=== PATIENT | male | born 1965 | race Caucasian/White ===

== ENCOUNTER 2016-12-19 14:09 | Emergency (ER) | payer BC ==
--- NOTE | 2016-12-19 15:48 | DIAGNOSTIC IMAGING REPORT ---
PROCEDURE: XR CHEST 2 VIEW INDICATION: CHEST PAIN TECHNIQUE: PA and lateral views. COMPARISON: None. FINDINGS: Lungs are clear. Heart and mediastinum are normal. Thorax is normal. IMPRESSION: 1. Negative chest.
--- NOTE | 2016-12-19 17:52 | ED ORDER SUMMARY ---
..... Patient: ROBERTO FAGAN OrderSheet [facility] VisitID: [id number] [address] [place] [address] 51y, M Registration Date/Time: 12/19/2016 ORDER SHEET Weight: 102.0 kg Allergies: No Known Drug Allergy GENERAL ORDERS: Chest 2V Urgent (14:12/19/2016 PHutchinson DO) (Ack 14:30 LTapper) (17:06 KWilliams R.N.) Electrical Logger (Continuous) (14:12/19/2016 PHutchinson DO) (14:27 EBonham) UA-Culture if indicated Urgent (14:12/19/2016 PHutchinson DO) (14:28 EBonham) Cardiac Panel Stat (14:12/19/2016 PHutchinson DO) (14:28 EBonham) BNP Urgent (14:12/19/2016 PHutchinson DO) (14:28 EBonham) Amylase Urgent (14:12/19/2016 PHutchinson DO) (14:28 EBonham) Lipase Urgent (14:12/19/2016 PHutchinson DO) (Ack 14:30 LTapper) (16:14 EBonham) Urine Drug Screen Urgent (14:12/19/2016 PHutchinson DO) (14:28 EBonham) TSH Urgent (14:12/19/2016 PHutchinson DO) (14:28 EBonham) Ethyl Alcohol Urgent (14:12/19/2016 PHutchinson DO) (14:28 EBonham) Oxygen (2 L/min) (NC) (14:12/19/2016 PHutchinson DO) (14:28 EBonham) Pulse oximeter (14:12/19/2016 PHutchinson DO) (14:29 EBonham) EKG - ER Stat (14:12/19/2016 PHutchinson DO) (Ack 14:30 LTapper) Vitals (14:12/19/2016 PHutchinson DO) (14:28 EBonham) MEDICATION ORDERS: IV FLUIDS: IV NS : initial bolus 1000 mL (1000 mL/hr), then 250 mL/hr for X4 (NOW) (14:27 12/19/2016 Reji FISCHER) (14:29 Luis) ORDER SHEET NOTES: [Electronically signed by Teresa Yanes (18:12 12/19/2016)] [Electronically signed by Warner Ceballos DO (07:35 12/20/2016)] [Electronically locked/signed by Teresa Yanes (18:12 12/19/2016)]
--- NOTE | 2016-12-19 17:52 | ED ORDER SUMMARY ---
..... Patient: ROBERTO FAGAN OrderSheet [facility] VisitID: [id number] [address] [place] [address] 51y, M Registration Date/Time: 12/19/2016 ORDER SHEET Weight: 102.0 kg Allergies: No Known Drug Allergy GENERAL ORDERS: Chest 2V Urgent (14:12/19/2016 PHutchinson DO) (Ack 14:30 LTapper) (17:06 KWilliams R.N.) Records Management Specialist (Continuous) (14:12/19/2016 PHutchinson DO) (14:27 EBonham) UA-Culture if indicated Urgent (14:12/19/2016 PHutchinson DO) (14:28 EBonham) Cardiac Panel Stat (14:12/19/2016 PHutchinson DO) (14:28 EBonham) BNP Urgent (14:12/19/2016 PHutchinson DO) (14:28 EBonham) Amylase Urgent (14:12/19/2016 PHutchinson DO) (14:28 EBonham) Lipase Urgent (14:12/19/2016 PHutchinson DO) (Ack 14:30 LTapper) (16:14 EBonham) Urine Drug Screen Urgent (14:12/19/2016 PHutchinson DO) (14:28 EBonham) TSH Urgent (14:12/19/2016 PHutchinson DO) (14:28 EBonham) Ethyl Alcohol Urgent (14:12/19/2016 PHutchinson DO) (14:28 EBonham) Oxygen (2 L/min) (NC) (14:12/19/2016 PHutchinson DO) (14:28 EBonham) Pulse oximeter (14:12/19/2016 PHutchinson DO) (14:29 EBonham) EKG - ER Stat (14:12/19/2016 PHutchinson DO) (Ack 14:30 LTapper) Vitals (14:12/19/2016 PHutchinson DO) (14:28 EBonham) MEDICATION ORDERS: IV FLUIDS: IV NS : initial bolus 1000 mL (1000 mL/hr), then 250 mL/hr for X4 (NOW) (14:27 12/19/2016 Reji FISCHER) (14:29 Luis) ORDER SHEET NOTES: [Electronically signed by Teresa Yanes (18:12 12/19/2016)] [Electronically signed by Warner Ceballos DO (07:35 12/20/2016)] [Electronically locked/signed by Teresa Yanes (18:12 12/19/2016)]
--- NOTE | 2016-12-19 17:52 | ED NURSING NOTES ---
Clinical Report - Nurses [facility] [address] [place] [address] 12/19/2016 14:12 Patient: ROBERTO FAGAN TRIAGE Triage time 1415. Acuity: LEVEL 3. Chief Complaint: ABDOMINAL PAIN. Alert. No acute distress. --14:26 Teresa Yanes 14:22 12/19/16. BP: 186/110. HR: 86. RR: 18. O2 saturation: 98%. Temp: 98.3 F. Pain level now 04/15. --14: Teresa Yanes. Weight: 102 kg. Height/Length: 70.5 inches. BMI: 31.8. --14:21 Teresa Yanes. Medications FLUoxetine HCl Oral. --14:23 Teresa Yanes Lisinopril Oral. --14:23 Teresa Yanes. Allergies No Known Drug Allergy. --18:12 Teresa Yanes. History Arrived by private vehicle. Historian: patient. Onset. (5 hours ago). ( Pt with sudden sharp LLQ pain that radiates up to chest, sudden onset, pain doesn't last long, denies any other sxs, hx htn, lisnopril rx ). Treatment CHEMISTRY INTERN: None. SOCIAL HX: Former smoker, end date 2002. Heavy alcohol use; consumes a large amount of liquor daily. Last drink was less than 24 hours ago. --14:26 Teresa Yanes. PROBLEMS: Hypertension. --14:23 Teresa Yanes. ADDITIONAL SURGERIES: Appendectomy. --14:23 Teresa Yanes. Interventions ID band on patient. To treatment room. --14: Teresa Yanes. PHYSICAL ASSESSMENT Ambulatory to room. GENERAL / NEURO / PSYCH: Alert. Oriented X 4. Appears anxious. HEENT: Mucous membranes are pink. RESPIRATORY: Respirations not labored. Breath sounds within normal limits. CVS: Normal sinus rhythm noted. Capillary refill less than 2 seconds. GI / : Abdomen soft and nontender. Bowel sounds within normal limits. SKIN: Skin is warm and dry. --14:26 Teresa Yanes. NURSING PROGRESS NOTES The plan of care for this patient has been created. Reassurance given. Call light placed in reach. Side rails up x 1. Bed placed in lowest position. Brakes of bed on. Patient ready for evaluation- chart flagged and ED physician notified. --14: Teresa Yanes 14:12/19/2016 Site #1 started via IV in the right antecubital space with an 20g angiocath; one attempt. Blood drawn: rainbow set. Labeled in the presence of the patient. Saline lock flushed with 10 mL saline. --14: Teresa Yanes 14:12/19/2016 Started bag #1 1000 mL IV Fluids IV NS (Saline); bolus of 1000 mL wide open via site #1 --14: Teresa Yanes 15:37 12/19/16. BP: 157/90. HR: 76. RR: 16. O2 saturation: 100%. Pain level now 0/10. --15:38 Teresa Yanes Reassessment after fluids administered. He reports no complaints. Overall patient status is the same- he states feels the same. --15:38 Teresa Yanes 15:38 12/19/2016 IV Fluids IV NS Discontinued: bag #1 infused. Total amount infused: 1000 mL. --15:38 Teresa Yanes 18:11 12/19/2016 Site #1 removed upon discharge. Pressure dressing applied. --18:12 Teresa Yanes. DISPOSITION / DISCHARGE Condition at departure: improved and stable. Discharge instructions provided and reviewed with the patient. Reviewed medication(s). Patient verbalized understanding. Written instructions provided in [place]uran. The patient was discharged by the physician. He was discharged home. He left the Emergency Department ambulatory and via private vehicle. Patient driving. --18:11 Teresa Yanes 18:09 12/19/16. BP: 157/90. HR: 72. RR: 18. O2 saturation: 99%. Pain level now 0/10. --18:11 Teresa Yanes Departure time: 1808. --18:11 Teresa Yanes. Locked/Released at 12/19/2016 18:12 by Teresa Yanes,
--- NOTE | 2016-12-19 17:52 | ED NURSING NOTES ---
Clinical Report - Nurses [facility] [address] [place] [address] 12/19/2016 14:12 Patient: ROBERTO FAGAN TRIAGE Triage time 1415. Acuity: LEVEL 3. Chief Complaint: ABDOMINAL PAIN. Alert. No acute distress. --14:26 Teresa Yanes 14:22 12/19/16. BP: 186/110. HR: 86. RR: 18. O2 saturation: 98%. Temp: 98.3 F. Pain level now 04/15. --14: Teresa Yanes. Weight: 102 kg. Height/Length: 70.5 inches. BMI: 31.8. --14:21 Teresa Yanes. Medications FLUoxetine HCl Oral. --14:23 Teresa Yanes Lisinopril Oral. --14:23 Teresa Yanes. Allergies No Known Drug Allergy. --18:12 Teresa Yanes. History Arrived by private vehicle. Historian: patient. Onset. (5 hours ago). ( Pt with sudden sharp LLQ pain that radiates up to chest, sudden onset, pain doesn't last long, denies any other sxs, hx htn, lisnopril rx ). Treatment [facility] SECURITY: None. SOCIAL HX: Former smoker, end date 2002. Heavy alcohol use; consumes a large amount of liquor daily. Last drink was less than 24 hours ago. --14:26 Teresa Yanes. PROBLEMS: Hypertension. --14:23 Teresa Yanes. ADDITIONAL SURGERIES: Appendectomy. --14:23 Teresa Yanes. Interventions ID band on patient. To treatment room. --14: Teresa Yanes. PHYSICAL ASSESSMENT Ambulatory to room. GENERAL / NEURO / PSYCH: Alert. Oriented X 4. Appears anxious. HEENT: Mucous membranes are pink. RESPIRATORY: Respirations not labored. Breath sounds within normal limits. CVS: Normal sinus rhythm noted. Capillary refill less than 2 seconds. GI / : Abdomen soft and nontender. Bowel sounds within normal limits. SKIN: Skin is warm and dry. --14:26 Teresa Yanes. NURSING PROGRESS NOTES The plan of care for this patient has been created. Reassurance given. Call light placed in reach. Side rails up x 1. Bed placed in lowest position. Brakes of bed on. Patient ready for evaluation- chart flagged and ED physician notified. --14: Teresa Yanes 14:12/19/2016 Site #1 started via IV in the right antecubital space with an 20g angiocath; one attempt. Blood drawn: rainbow set. Labeled in the presence of the patient. Saline lock flushed with 10 mL saline. --14: Teresa Yanes 14:12/19/2016 Started bag #1 1000 mL IV Fluids IV NS (Saline); bolus of 1000 mL wide open via site #1 --14: Teresa Yanes 15:37 12/19/16. BP: 157/90. HR: 76. RR: 16. O2 saturation: 100%. Pain level now 0/10. --15:38 Teresa Yanes Reassessment after fluids administered. He reports no complaints. Overall patient status is the same- he states feels the same. --15:38 Teresa Yanes 15:38 12/19/2016 IV Fluids IV NS Discontinued: bag #1 infused. Total amount infused: 1000 mL. --15:38 Teresa Yanes 18:11 12/19/2016 Site #1 removed upon discharge. Pressure dressing applied. --18:12 Teresa Yanes. DISPOSITION / DISCHARGE Condition at departure: improved and stable. Discharge instructions provided and reviewed with the patient. Reviewed medication(s). Patient verbalized understanding. Written instructions provided in Israeli. The patient was discharged by the physician. He was discharged home. He left the Emergency Department ambulatory and via private vehicle. Patient driving. --18:11 Teresa Yanes 18:09 12/19/16. BP: 157/90. HR: 72. RR: 18. O2 saturation: 99%. Pain level now 0/10. --18:11 Teresa Yanes Departure time: 1808. --18:11 Teresa Yanes. Locked/Released at 12/19/2016 18:12 by Teresa Yanes,
--- NOTE | 2016-12-19 17:52 | ED CLINICAL REPORT ---
Clinical Report - Physicians/Mid Levels [facility] [address] [place] [address] 12/19/2016 14:12 Patient: ROBERTO FAGAN Time Seen: 14:22. Arrived- By private vehicle. Historian- patient. HISTORY OF PRESENT ILLNESS Chief Complaint: ABDOMINAL PAIN. At its maximum, severity described as moderate. When seen in the E.D., it was gone. Modifying factors. Not worsened by anything. Not relieved by anything. This started about 5 hours ago and is still present. It was gradual in onset and has been waxing/waning. It is described as "pain" and sharp and it is described as located in the left lower quadrant and radiating (left upper abdomen and left lower chest). No nausea, vomiting or diarrhea. Similar symptoms previously: None. Recent medical care: Not recently seen/assessed. REVIEW OF SYSTEMS No constipation, black stools, hematemesis, difficulty with urination or pain with urination. No urinary frequency, bloody stools, fever, sore throat or chest pain. No difficulty breathing, cough, skin rash or back pain. All systems otherwise negative, except as recorded above. PAST HISTORY See nurses notes. Hypertension. Anxiety. Depression. Surgeries: Appendectomy. Medications: Lisinopril Oral. FLUoxetine HCl Oral. SOCIAL HISTORY Smoker- current status unknown. Heavy alcohol use; consumes liquor daily. Last drink was less than 24 hours ago. ADDITIONAL NOTES The nursing notes have been reviewed. PHYSICAL EXAM Vital Signs: 12/19/2016 14:22 BP: 186/110. HR: 86. RR: 18. O2 saturation: 98%. Temp: 98.3 F. Appearance: Alert. Oriented X3. Anxious. Patient in mild distress. Eyes: Eyes normal inspection. No scleral icterus or pale conjunctivae. ENT: Pharynx normal. No pharyngeal erythema or tonsillar exudate. The mucous membranes are not dry. Neck: Normal inspection. Neck supple. CVS: Normal heart rate and rhythm. Heart sounds normal. Pulses normal. Respiratory: No respiratory distress. Breath sounds normal. Chest nontender. Abdomen: Soft and nontender. No mass. Back: Normal inspection. Skin: Skin warm and dry. Normal skin color. No rash. Normal skin turgor. Extremities: Extremities exhibit normal ROM. No lower extremity edema. No calf tenderness. No lower extremity edema. Neuro: Oriented X 3. No motor deficit. LABS, X-RAYS, AND EKG Rhythm Strip #1: Normal sinus rhythm. Regular rhythm. Narrow QRS complexes. No ectopy. Chest X-ray: No acute disease. Normal lung markings present. Normal heart size. Mediastinum normal. Great vessels normal. No infiltrate. Views: PA and lateral. Technique: good. The X-rays were interpreted contemporaneously by me. The X-rays were discussed with the radiologist (via PACS note). Laboratory Tests: UA-Culture if indicated: (ABEL: 12/19/2016 16:13) ( [facility] 12/19/2016 16:39) Final results Test Result Flag Units (Reference) URINE COLOR YELLOW URINE APPEARANCE CLEAR URINE GLUCOSE NEGATIVE (NEGATIVE) URINE BILIRUBIN NEGATIVE (NEGATIVE) URINE KETONE NEGATIVE (NEGATIVE) URINE SPECIFIC GRAVITY 1.025 (1.010-1.030) URINE PH 6.0 (5.0-8.0) URINE PROTEIN NEGATIVE (NEGATIVE) URINE UROBILINOGEN 0.2 EU/dL (0.2-1.0) URINE NITRITE NEGATIVE (NEGATIVE) URINE BLOOD TRACE-LYSED (NEGATIVE) URINE LEUK ESTERASE NEGATIVE (NEGATIVE) URINE RBC 0-1 rbc/hpf (0-1) URINE WBC RARE wbc/hpf (0-1) URINE EPITHELIAL CELLS RARE EPI/hpf (0-5) URINE BACTERIA NONE SEEN (NONE SEEN) URINE COMMENT CULT NOT INDICATED URINE CULTURES ARE SET-UP BASED ON THE FOLLOWING CRITERIA:POSITIVE NITRITEPOSITIVE LEUKOCYTE ESTERASEGREATER THAN 10 WHITE BLOOD CELLSMODERATE (2+) OR GREATER BACTERIA CBC w Diff: (ABEL: 12/19/2016 14:23) ( [facility] 12/19/2016 14:41) Final results Test Result Flag Units (Reference) WHITE BLOOD COUNT 6.3 K/uL (4.5-11.5) RED BLOOD COUNT 4.61 M/uL (4.50-5.90) HEMOGLOBIN 15.0 gm/dL (13.5-17.5) HEMATOCRIT 43.5 % (41.0-53.0) MEAN CELL VOLUME 94 fL (80-100) MEAN CORPUSCULAR HGB 33 pg (26-34) MEAN CORPUSCULAR HGB CONC 35 g/dL (31-37) RED CELL DISTRIBUTION WIDTH 12.9 % (11.6-14.8) PLATELET COUNT 268 K/uL (150-400) NEUTROPHIL % 55.3 % (50-75) LYMPH % 33.8 % (25-40) MONO % 9.0 % (3-14) EOSINOPHIL % 1.4 % (0-4) BASOPHIL % 0.5 % (0-2) Urine Drug Screen: (ABEL: 12/19/2016 16:13) ( MsgRcvd 12/19/2016 16:37) Final results Test Result Flag Units (Reference) AMPHETAMINE/METHAMPHETAMINE NEGATIVE (NEGATIVE) BARBITURATE NEGATIVE (NEGATIVE) BENZODIAZEPINE NEGATIVE (NEGATIVE) CANNABINOID POSITIVE H (NEGATIVE) COCAINE NEGATIVE (NEGATIVE) ECSTASY NEGATIVE (NEGATIVE) METHADONE NEGATIVE (NEGATIVE) OPIATE NEGATIVE (NEGATIVE) The urine drug screen is a qualitative screening test fordrug overdose and abuse. All screen results should beconsidered as presumptive.Drugs screened for are as follows:BenzodiazepinesCocaineAmphetamines/MetamphetaminesTHC (Tetrahydrocannabinol)OpiatesBarbituratesEcstasyMethadonePositive results are unconfirmed. For confirmation, notifythe lab for the specimen to be sent to the reference lab.All confirmations must be performed by a differentmethodology.The ingestion of natural herbal and plant productscontaining Ephedra/Ephedra metabolites can produce in urineone or more substances capable of cross reacting withamphetamine/methamphetamine immunoassays. These testsprovide a preliminary result only. A more specificalternative chemical method must be used to obtain aconfirmed analytical result. BNP: (ABEL: 12/19/2016 14:23) ( MsgRcvd 12/19/2016 14:55) Final results Test Result Flag Units (Reference) B-TYPE NATRIURETIC PEPTIDE < 5.0 L pg/ml (5-100) CHEM 13 PANEL: (ABEL: 12/19/2016 14:23) ( MsgRcvd 12/19/2016 14:59) Final results Test Result Flag Units (Reference) GLUCOSE 102 mg/dL (70-110) BUN 18 mg/dL (7-18) CREATININE 0.8 mg/dL (0.6-1.3) Estimated GFR >60 mL/min Estimated GFR- >60 mL/min Note: Persistent reduction over 3 months in eGFR<60 mL/min/1.73 m2 defines CKD. Patients with eGFR values>=60 mL/min/1.73 m2 may also have CKD if evidence ofpersistent proteinuria. Additional information may be foundat www.kidney.org. SODIUM 140 mmol/L (136-145) POTASSIUM 3.7 mmol/L (3.5-5.1) CHLORIDE 102 mmol/L (98-107) CARBON DIOXIDE 29 mmol/L (21-32) CALCIUM 9.2 mg/dL (8.5-10.1) TOTAL PROTEIN 7.6 g/dL (6.4-8.2) ALBUMIN 4.4 g/dL (3.3-5.0) BILIRUBIN, TOTAL 0.7 mg/dL (0.0-1.0) ALKALINE PHOSPHATASE 72 U/L (46-116) AST (SGOT) 50 H U/L (15-37) ALT (SGPT) 136 H U/L (12-78) CPK 177 U/L (24-260) MAGNESIUM 1.9 mg/dL (1.8-2.4) LIPASE 114 U/L (73-393) AMYLASE 40 U/L (25-115) TROPONIN I <0.05 L ng/mL (0.00-1.5) TROPONIN REFERENCE RANGE:<0.1 NEGATIVE0.1-1.5 INDETERMINANT>1.5 POSITIVE ETHYL ALCOHOL <3 L mg/dL (3-10) THYROID STIMULATING HORMONE 1.698 uIU/mL (0.34-3.74) . Pulse Oximetry: 12/19/2016 14:22 O2 saturation: 98%. (FIO2 - room air). Interpretation: normal. PROGRESS AND PROCEDURES Course of Care: Normal Saline 1 liter IVPB given. 12/19/2016 15:37 BP: 157/90. HR: 76. RR: 16. O2 saturation: 100%. 12/19/2016 18:09 BP: 157/90. HR: 72. RR: 18. O2 saturation: 99%. Patient/family counseled. Prior records not ordered. Disposition: Discharged. Condition: stable and improved. CLINICAL IMPRESSION Acute left upper quadrant and left lower quadrant abdominal pain of unknown cause. Abnormal liver function test: AST/SGOT and ALT/SGPT. INSTRUCTIONS Do not work for two days. Drink plenty of fluids. No alcohol until released. Warnings: Further evaluation is necessary. It is very important to follow up with a physician. GENERAL WARNINGS: Return or contact your physician immediately if your condition worsens or changes unexpectedly, if not improving as expected, or if other problems arise. Your Current Medications: CONTINUE TAKING THE FOLLOWING MEDICATIONS: FLUoxetine HCl Oral. Lisinopril Oral. Prescription Medications: Prilosec 20 mg capsules: Take 1 capsule orally once daily. Dispense fifteen (15). No refills. Substitution is permissible. Follow-up: Follow up with your doctor [facility] tomorrow. Understanding of the discharge instructions verbalized by parent. (Electronically signed by Warner Ceballos DO 12/20/2016 7:35)
--- NOTE | 2016-12-20 07:35 | ED DISCHARGE INSTRUCTIONS ---
Patient: ROBERTO FAGAN General Instructions [facility] VisitID: [id number] [place] [address] 51y, M Registration Date/Time: 12/19/2016 Acute left upper quadrant and left lower quadrant abdominal pain of unknown cause. Abnormal liver function test: AST/SGOT and ALT/SGPT. INSTRUCTIONS Do not work for two days. Drink plenty of fluids. No alcohol until released. Warnings: Further evaluation is necessary. It is very important to follow up with a physician. GENERAL WARNINGS: Return or contact your physician immediately if your condition worsens or changes unexpectedly, if not improving as expected, or if other problems arise. Your Current Medications: CONTINUE TAKING THE FOLLOWING MEDICATIONS: FLUoxetine HCl Oral. Lisinopril Oral. Prescription Medications: Prilosec 20 mg capsules: Take 1 capsule orally once daily. Dispense fifteen (15). No refills. Substitution is permissible. Follow-up: Follow up with your doctor [facility] tomorrow. Understanding of the discharge instructions verbalized by parent. ADDITIONAL INFORMATION Abdominal Pain,Uncertain Cause [Male] Based on your visit today, the exact cause of your abdominalpain is not clear. Your exam and tests do not indicate a dangerous cause at this time. However, the signs of a serious problem may take more time to appear. Although your evaluation was reassuring today, sometimes early in the course of many conditions, exam and lab tests can appear normal. Therefore, it is important for you to watch for any new symptoms or worsening of your condition. Causes It may not be obvious what caused your symptoms. Pay attention to things that do seem to make your symptoms worse or better and discuss this with your doctor when you follow up. Diagnosis The evaluation of abdominal pain in the emergency department may onlyrequire an exam by the doctor or it may include blood, urine or imaging studies, depending on many factors. Sometimes exams and tests can identify a cause but in many cases, a clear cause is not found. Further testing at follow up visits may help to suggest a clear diagnosis. Home Care Rest as much as possible until your next exam. Try to avoid any medications (unless otherwise directed by your doctor), foods, activities, or other factors that you may have contributed to your symptoms. Try to eat foods that you know that you have tolerated well in the past. Certain diets may be recommended for some conditions that cause abdominal pain. However, since the cause of your symptoms may not be clear, discuss your diet more with your primary care provider or specialist for further recommendations. Eating several small meals per day as opposed to 2 or 3 larger meals may help. Monitor closely for anything that may make your symptoms worse or better. Pay close attention to symptoms below that may indicate worsening of your condition. Follow Up and Precautions See your doctoras instructed or sooneror if your symptoms are not improving.In some cases, you may need more testing. When to Seek Medical Attention Contact your doctor or see medical attention ifany of the following occur: Pain is becoming worse You are unable to take your medications due to excessive vomiting Swelling of the abdomen Fever of 100.4F (38C) or higher, or as directed by your health care provider Blood in vomit or bowel movements (dark red or black color) Jaundice (yellow color of eyes and skin) New onset of weakness, dizziness or fainting New onset of chest, arm, back, neck or jaw pain Omeprazole Magnesium Gastro-resistant tablet What is this medicine? OMEPRAZOLE (oh ME pray zol) prevents the production of acid in the stomach. It is used to treat the symptoms of heartburn. You can buy this medicine without a prescription. This product is not for long-term use, unless otherwise directed by your doctor or health career consultant. How should I use this medicine? Take this medicine by mouth. Follow the directions on the product label. If you are taking this medicine without a prescription, take one tablet every day. Do not use for longer than 14 days or repeat a course of treatment more often than every 4 months unless directed by a doctor or healthcare professional. Take your dose at regular intervals every 24 hours. Swallow the tablet whole with a drink of water. Do not crush, break or chew. This medicine works best if taken on an empty stomach 30 minutes before breakfast. If you are using this medicine with the prescription of your doctor or healthcare professional, follow the directions you were given. Do not take your medicine more often than directed. Talk to your decorating equipment setter regarding the use of this medicine in children. Special care may be needed. What side effects may I notice from receiving this medicine? Side effects that you should report to your doctor or health career consultant as soon as possible: allergic reactions like skin rash, itching or hives, swelling of the face, lips, or tongue bone, muscle or joint pain breathing problems chest pain or chest tightness dark yellow or brown urine diarrhea dizziness fast, irregular heartbeat feeling faint or lightheaded fever or sore throat muscle spasm palpitations redness, blistering, peeling or loosening of the skin, including inside the mouth seizures tremors unusual bleeding or bruising unusually weak or tired yellowing of the eyes or skin Side effects that usually do not require medical attention (Report these to your doctor or health career consultant if they continue or are bothersome.): constipation dry mouth headache loose stools nausea What may interact with this medicine? Do not take this medicine with any of the following medications: atazanavir clopidogrel nelfinavir This medicine may also interact with the following medications: ampicillin certain medicines for anxiety or sleep certain medicines that treat or prevent blood clots like warfarin cyclosporine diazepam digoxin disulfiram iron salts phenytoin prescription medicine for fungal or yeast infection like itraconazole, ketoconazole, voriconazole saquinavir tacrolimus What if I miss a dose? If you miss a dose, take it as soon as you can. If it is almost time for your next dose, take only that dose. Do not take double or extra doses. Where should I keep my medicine? Keep out of the reach of children. Store at room temperature between 20 and 25 degrees C (68 and 77 degrees F). Protect from light and moisture. Throw away any unused medicine after the expiration date. What should I tell my health care provider before I take this medicine? They need to know if you have any of these conditions: black or bloody stools chest pain difficulty swallowing have had heartburn for over 3 months have heartburn with dizziness, lightheadedness or sweating liver disease stomach pain unexplained weight loss vomiting with blood wheezing an unusual or allergic reaction to omeprazole, other medicines, foods, dyes, or preservatives or trying to get breast-feeding What should I watch for while using this medicine? It can take several days before your heartburn gets better. Check with your doctor or health career consultant if your condition does not start to get better, or if it gets worse. Do not treat diarrhea with over the counter products. Contact your doctor if you have diarrhea that lasts more than 2 days or if it is severe and watery. Do not treat yourself for heartburn with this medicine for more than 14 days in a row. You should only use this medicine for a 2-week treatment period once every 4 months. If your symptoms return shortly after your therapy is complete, or within the 4 month time frame, call your doctor or health career consultant. You have been given the following additional information: Abdominal Pain, Unknown Cause, (Male) Omeprazole Magnesium Gastro-resistant tablet Do not work for two days. (Electronically signed by Warner Ceballos DO 12/20/2016 7:35)
--- NOTE | 2016-12-20 07:35 | ED MED RECONCILIATION SUMMARY ---
Patient: ROBERTO FAGAN Medication Reconciliation Report [facility] VisitID: [id number] [address] [place] [address] 51y, M Registration Date/Time: 12/19/2016 Weight: 102.0 kg Height/Length: 60 in. BMI: 31.8 ALLERGIES: No Known Drug Allergy The patient's Home Medications are listed below: CONTINUE TAKING THE FOLLOWING MEDICATIONS: FLUoxetine HCl Oral Lisinopril Oral The source(s) of the original Home Medication information: Not obtained. The following Medications were given to the patient in the Emergency Department: IV NS IV Fluids bolus 1000 mL wide open, administered: 12/19/2016 2:29:00 PM The following Medications were prescribed to the patient: Prilosec 20 mg capsules: Take 1 capsule orally once daily. Dispense fifteen (15). No refills. Substitution is permissible. -- Warner Ceballos,
--- NOTE | 2016-12-20 07:35 | ED DISCHARGE INSTRUCTIONS ---
Patient: ROBERTO FAGAN General Instructions [facility] VisitID: [id number] [place] [address] 51y, M Registration Date/Time: 12/19/2016 Acute left upper quadrant and left lower quadrant abdominal pain of unknown cause. Abnormal liver function test: AST/SGOT and ALT/SGPT. INSTRUCTIONS Do not work for two days. Drink plenty of fluids. No alcohol until released. Warnings: Further evaluation is necessary. It is very important to follow up with a physician. GENERAL WARNINGS: Return or contact your physician immediately if your condition worsens or changes unexpectedly, if not improving as expected, or if other problems arise. Your Current Medications: CONTINUE TAKING THE FOLLOWING MEDICATIONS: FLUoxetine HCl Oral. Lisinopril Oral. Prescription Medications: Prilosec 20 mg capsules: Take 1 capsule orally once daily. Dispense fifteen (15). No refills. Substitution is permissible. Follow-up: Follow up with your doctor [facility] tomorrow. Understanding of the discharge instructions verbalized by parent. ADDITIONAL INFORMATION Abdominal Pain,Uncertain Cause [Male] Based on your visit today, the exact cause of your abdominalpain is not clear. Your exam and tests do not indicate a dangerous cause at this time. However, the signs of a serious problem may take more time to appear. Although your evaluation was reassuring today, sometimes early in the course of many conditions, exam and lab tests can appear normal. Therefore, it is important for you to watch for any new symptoms or worsening of your condition. Causes It may not be obvious what caused your symptoms. Pay attention to things that do seem to make your symptoms worse or better and discuss this with your doctor when you follow up. Diagnosis The evaluation of abdominal pain in the emergency department may onlyrequire an exam by the doctor or it may include blood, urine or imaging studies, depending on many factors. Sometimes exams and tests can identify a cause but in many cases, a clear cause is not found. Further testing at follow up visits may help to suggest a clear diagnosis. Home Care Rest as much as possible until your next exam. Try to avoid any medications (unless otherwise directed by your doctor), foods, activities, or other factors that you may have contributed to your symptoms. Try to eat foods that you know that you have tolerated well in the past. Certain diets may be recommended for some conditions that cause abdominal pain. However, since the cause of your symptoms may not be clear, discuss your diet more with your primary care provider or specialist for further recommendations. Eating several small meals per day as opposed to 2 or 3 larger meals may help. Monitor closely for anything that may make your symptoms worse or better. Pay close attention to symptoms below that may indicate worsening of your condition. Follow Up and Precautions See your doctoras instructed or sooneror if your symptoms are not improving.In some cases, you may need more testing. When to Seek Medical Attention Contact your doctor or see medical attention ifany of the following occur: Pain is becoming worse You are unable to take your medications due to excessive vomiting Swelling of the abdomen Fever of 100.4F (38C) or higher, or as directed by your health care provider Blood in vomit or bowel movements (dark red or black color) Jaundice (yellow color of eyes and skin) New onset of weakness, dizziness or fainting New onset of chest, arm, back, neck or jaw pain Omeprazole Magnesium Gastro-resistant tablet What is this medicine? OMEPRAZOLE (oh ME pray zol) prevents the production of acid in the stomach. It is used to treat the symptoms of heartburn. You can buy this medicine without a prescription. This product is not for long-term use, unless otherwise directed by your doctor or health human services care specialist. How should I use this medicine? Take this medicine by mouth. Follow the directions on the product label. If you are taking this medicine without a prescription, take one tablet every day. Do not use for longer than 14 days or repeat a course of treatment more often than every 4 months unless directed by a doctor or healthcare professional. Take your dose at regular intervals every 24 hours. Swallow the tablet whole with a drink of water. Do not crush, break or chew. This medicine works best if taken on an empty stomach 30 minutes before breakfast. If you are using this medicine with the prescription of your doctor or healthcare professional, follow the directions you were given. Do not take your medicine more often than directed. Talk to your access clerk regarding the use of this medicine in children. Special care may be needed. What side effects may I notice from receiving this medicine? Side effects that you should report to your doctor or health human services care specialist as soon as possible: allergic reactions like skin rash, itching or hives, swelling of the face, lips, or tongue bone, muscle or joint pain breathing problems chest pain or chest tightness dark yellow or brown urine diarrhea dizziness fast, irregular heartbeat feeling faint or lightheaded fever or sore throat muscle spasm palpitations redness, blistering, peeling or loosening of the skin, including inside the mouth seizures tremors unusual bleeding or bruising unusually weak or tired yellowing of the eyes or skin Side effects that usually do not require medical attention (Report these to your doctor or health human services care specialist if they continue or are bothersome.): constipation dry mouth headache loose stools nausea What may interact with this medicine? Do not take this medicine with any of the following medications: atazanavir clopidogrel nelfinavir This medicine may also interact with the following medications: ampicillin certain medicines for anxiety or sleep certain medicines that treat or prevent blood clots like warfarin cyclosporine diazepam digoxin disulfiram iron salts phenytoin prescription medicine for fungal or yeast infection like itraconazole, ketoconazole, voriconazole saquinavir tacrolimus What if I miss a dose? If you miss a dose, take it as soon as you can. If it is almost time for your next dose, take only that dose. Do not take double or extra doses. Where should I keep my medicine? Keep out of the reach of children. Store at room temperature between 20 and 25 degrees C (68 and 77 degrees F). Protect from light and moisture. Throw away any unused medicine after the expiration date. What should I tell my health care provider before I take this medicine? They need to know if you have any of these conditions: black or bloody stools chest pain difficulty swallowing have had heartburn for over 3 months have heartburn with dizziness, lightheadedness or sweating liver disease stomach pain unexplained weight loss vomiting with blood wheezing an unusual or allergic reaction to omeprazole, other medicines, foods, dyes, or preservatives or trying to get breast-feeding What should I watch for while using this medicine? It can take several days before your heartburn gets better. Check with your doctor or health human services care specialist if your condition does not start to get better, or if it gets worse. Do not treat diarrhea with over the counter products. Contact your doctor if you have diarrhea that lasts more than 2 days or if it is severe and watery. Do not treat yourself for heartburn with this medicine for more than 14 days in a row. You should only use this medicine for a 2-week treatment period once every 4 months. If your symptoms return shortly after your therapy is complete, or within the 4 month time frame, call your doctor or health human services care specialist. You have been given the following additional information: Abdominal Pain, Unknown Cause, (Male) Omeprazole Magnesium Gastro-resistant tablet Do not work for two days. (Electronically signed by Warner Ceballos DO 12/20/2016 7:35)
--- NOTE | 2016-12-20 07:35 | ED MED RECONCILIATION SUMMARY ---
Patient: ROBERTO FAGAN Medication Reconciliation Report [facility] VisitID: [id number] [address] [place] [address] 51y, M Registration Date/Time: 12/19/2016 Weight: 102.0 kg Height/Length: 60 in. BMI: 31.8 ALLERGIES: No Known Drug Allergy The patient's Home Medications are listed below: CONTINUE TAKING THE FOLLOWING MEDICATIONS: FLUoxetine HCl Oral Lisinopril Oral The source(s) of the original Home Medication information: Not obtained. The following Medications were given to the patient in the Emergency Department: IV NS IV Fluids bolus 1000 mL wide open, administered: 12/19/2016 2:29:00 PM The following Medications were prescribed to the patient: Prilosec 20 mg capsules: Take 1 capsule orally once daily. Dispense fifteen (15). No refills. Substitution is permissible. -- Warner Ceballos,
--- NOTE | 2016-12-20 07:35 | ED MAR SUMMARY ---
..... Medication Administration Record [facility] [address] [place] [address] Patient: ROBERTO FAGAN Visit ID: [id number] 51y, M Weight: 102.0 kg Height/Length: 70.5 in BMI: 31.8 ALLERGIES: No Known Drug Allergy Start 14:29 12/19/2016 Teresa Yanes,, Stop 15:38 12/19/2016 Teresa Yanes, Medication Administered: IV NS (SALINE), Dose: IV Fluids, Bolus: 1000 mL wide open, Dispensed: 1000 mL bag, Site: #1 right AC. Medication Ordered: IV NS : initial bolus 1000 mL (1000 mL/hr), then 250 mL/hr for X4 (NOW).
--- NOTE | 2016-12-20 07:35 | ED MAR SUMMARY ---
..... Medication Administration Record [facility] [address] [place] [place] [address] Patient: ROBERTO FAGAN Visit ID: [id number] 51y, M Weight: 102.0 kg Height/Length: 70.5 in BMI: 31.8 ALLERGIES: No Known Drug Allergy Start 14:29 12/19/2016 Teresa Yanes,, Stop 15:38 12/19/2016 Teresa Yanes, Medication Administered: IV NS (SALINE), Dose: IV Fluids, Bolus: 1000 mL wide open, Dispensed: 1000 mL bag, Site: #1 right AC. Medication Ordered: IV NS : initial bolus 1000 mL (1000 mL/hr), then 250 mL/hr for X4 (NOW).
== END 2016-12-19 18:08 | disposition home or self-care (01) ==
LOC: ED SRH 14:09
DX: R10.32 Left lower quadrant pain (principal); R10.12 Left upper quadrant pain; R79.89 Other specified abnormal findings of blood chemistry; I10 Essential (primary) hypertension; Z87.891 Personal history of nicotine dependence; Z79.899 Other long term (current) drug therapy
CPT/HCPCS: 90004; 90100; 90616; 91320; 92010; 92235; 92530; 92610; 92720; 92760; 92761; 92762; 92763; 92764; 92765; 92766; 92767; 93140; 95059